=== PATIENT | female | born 1955 | race African-American/Black ===

== ENCOUNTER → 2017-01-16 | Outpatient (CLI) | payer MEDICARE, MEDICAID ==
[~2017-01-16] VITALS: Ht 157.5 cm; Wt 69.4 kg
[~2017-01-16] MED LIST: AMLO5TAB4 PO; ATOR40TA70 PO; DICY20TA11 PO; FENTANYL CITRATE/PF 50MCG/ML 2ML VIAL IV ONE; FENTANYL CITRATE/PF 50MCG/ML 2ML VIAL ONE; HYDR-523 PO; METF500T4 PO; SPIRIVA INH; breo; breo ellipta
[2017-01-16 10:15] VITALS: BP 125/63
[2017-01-16 10:30] VITALS: BP 161/91
[2017-01-16 10:34] VITALS: BP 161/91
[2017-01-16 10:45] VITALS: BP 145/91
[2017-01-16 10:51] VITALS: BP 145/91
[2017-01-16 11:00] VITALS: BP 148/86
== END | disposition home or self-care (01) ==
LOC: RAD 08:19
PROVIDERS: ATTEND Internal Medicine Critical Care Medicine
DX: J84.10 Pulmonary fibrosis, unspecified (principal); J43.9 Emphysema, unspecified
CPT/HCPCS: 32405; 71010; 77012; 87070; 87075; 87102; 87116; 87205; 88305; 88312; J3010

== ENCOUNTER → 2018-01-10 | Outpatient (CLI) | payer MEDICARE, MEDICAID ==
[~2018-01-10] MED LIST changes: -FENTANYL CITRATE/PF 50MCG/ML 2ML VIAL IV ONE; -FENTANYL CITRATE/PF 50MCG/ML 2ML VIAL ONE; -METF500T4 PO; +METF500T6 PO
== END | disposition home or self-care (01) ==
LOC: RAD 11:53
PROVIDERS: ATTEND Internal Medicine Critical Care Medicine
DX: M47.896 Other spondylosis, lumbar region (principal); I70.0 Atherosclerosis of aorta
CPT/HCPCS: 72100

== ENCOUNTER → 2018-12-25 | Outpatient (CLI) | payer MEDICARE, MEDICAID ==
[~2018-12-25] MED LIST changes: +METF-414 PO; -METF500T6 PO
== END | disposition home or self-care (01) ==
LOC: RAD 11:03
PROVIDERS: ATTEND Internal Medicine Critical Care Medicine
DX: M25.551 Pain in right hip (principal); M54.5 Low back pain
CPT/HCPCS: 73502

== ENCOUNTER 2020-11-16 18:27 | Inpatient (IN) | payer MEDICARE, MEDICAID ==
[~2020-11-16] VITALS: Ht 167.6 cm; Wt 68.0 kg
[2020-11-16 19:13] LABS: EOSINOPHILS % 2.1 % (0.0-5.0); HEMATOCRIT. 40.8 % (36.0-48.0); HEMOGLOBIN. 13.3 g/dL (12.0-16.0); LYMPHOCYTES % 20.6 % (20.0-50.0); MEAN CORPUSCULAR HEMOGLOBIN 25.3 pg (28.0-32.0); MEAN PLATELET VOLUME 7.8 fl (7.4-10.4); MONOCYTES % 7.8 % (2.0-8.0); NEUTROPHILS % 68.5 % (40.0-76.0); PLATELET 198 x1000/uL (130-400); RED BLOOD CELL COUNT 5.23 mill/uL (4.2-5.4)
[2020-11-16 19:18] LABS: CHLORIDE 106 mEq/L (98-107)
[2020-11-16] MEDS ORDERED: LEVOFLOXACIN 750MG PREMIX 150 ML IV ONE (21:00)
[2020-11-16] MEDS ORDERED: FUROSEMIDE 40MG/4ML VIAL IVP ONE (21:00)
[2020-11-16] MEDS ORDERED: HEPARIN 25,000 UNITS PREMIX 250 ML IV STA (23:00)
[2020-11-16] MEDS ORDERED: MORPHINE SULFATE 4 MG/ML CPJ (NOT FOR IM USE) IV ONE (23:15)
[2020-11-16] MEDS ORDERED: BENZONATATE 100MG CAPSULE PO PRN (23:15)
[2020-11-16] MEDS ORDERED: HEPARIN 25,000 UNITS PREMIX 250 ML IV SCH (23:45)
[2020-11-16] MEDS ORDERED: HEPARIN BOLUS PRN aPTT 37-44 IV (23:45)
[2020-11-16] MEDS ORDERED: HEPARIN BOLUS PRN aPTT <36 IV (23:45)
[2020-11-17] MEDS ORDERED: HEPARIN 80 UNITS/KG BOLUS IV NR
[2020-11-17] MEDS ORDERED: HEPARIN BOLUS PRN aPTT 37-44 IV (00:21)
[2020-11-17 01:00] VITALS: BP 141/84
[2020-11-17] MEDS ORDERED: APIX5TAB PO (02:12)
[2020-11-17] MEDS ORDERED: BENZ-16 PO (02:12)
[2020-11-17] MEDS ORDERED: TIOT18CA3 IH (02:12)
[2020-11-17] MEDS ORDERED: FLUT1BLS INH (02:12)
[2020-11-17] MEDS ORDERED: ATOR20TA65 PO (02:12)
[2020-11-17] MEDS ORDERED: MAGNESIUM/ALUMINUM HYDROXIDE/SIMETHICONE 30ML UDC PO PRN (03:00)
[2020-11-17] MEDS ORDERED: HYDROCODONE/ACETAMINOPHEN 5/325MG TABLET PO PRN (03:00)
[2020-11-17] MEDS ORDERED: ACETAMINOPHEN 325MG TABLET PO PRN (03:00)
[2020-11-17] MEDS ORDERED: GUAIFENESIN 200MG/10ML SUGAR FREE UDC PO PRN (03:00)
[2020-11-17] MEDS ORDERED: CLONIDINE 0.1MG TABLET PO PRN (03:00)
[2020-11-17] MEDS ORDERED: ONDANSETRON HCL 4MG/2ML INJ IV PRN (03:00)
[2020-11-17 04:00] VITALS: BP 144/85
[2020-11-17] MEDS ORDERED: DEXTROSE 50% WATER 50ML SYRINGE IV PRN (04:00)
[2020-11-17] MEDS: AZITHROMYCIN 500 MG in DEXT 5% WATER 250 ML IV SCH (04:23)
[2020-11-17] MEDS: CEFTRIAXONE 1,000 MG in DEXTROSE 5% WATER 50 ML IV SCH (04:24)
[2020-11-17] MEDS: ENOXAPARIN 60MG/0.6ML SYR SUBCUT SCH ×2 (04:24→16:12)
[2020-11-17] MEDS: BLOOD SUGAR DIAGNOSTIC STRIP TEST SCH ×4 (06:03→20:42)
[2020-11-17 08:00] VITALS: BP 155/91
[2020-11-17] MEDS ORDERED: AMLODIPINE 10MG TABLET PO SCH (09:00)
[2020-11-17] MEDS: INSULIN LISPRO 100 UNITS/ML SUBCUT SCH ×4 (10:13→20:51)
[2020-11-17] MEDS: METHYLPREDNISOLONE SOD SUCC 40 MG/ML VIAL IV SCH ×2 (10:14→16:11)
[2020-11-17] MEDS: AMLODIPINE 5MG TABLET PO SCH ×2 (10:15→20:42)
[2020-11-17] MEDS: FUROSEMIDE 40MG/4ML VIAL IV SCH (10:16)
[2020-11-17 12:00] VITALS: BP 103/53
[2020-11-17] MEDS ORDERED: LOSA50TA41 MT (12:06)
[2020-11-17] MEDS: LOSARTAN POTASSIUM 50 MG TABLET PO SCH ×2 (13:00→16:13)
[2020-11-17] MEDS ORDERED: POTASSIUM CHLORIDE 20MEQ TABLET SR PO SCH (14:15)
[2020-11-17 16:00] VITALS: BP 147/72
[2020-11-17 20:00] VITALS: BP 137/88
[2020-11-17] MEDS: ATORVASTATIN CALCIUM 20MG TABLET PO SCH (20:42)
[2020-11-18] VITALS: BP 135/73
[2020-11-18] MEDS: METHYLPREDNISOLONE SOD SUCC 40 MG/ML VIAL IV SCH ×3 (00:43→17:19)
[2020-11-18 04:00] VITALS: BP 133/78
[2020-11-18] MEDS: AZITHROMYCIN 500 MG in DEXT 5% WATER 250 ML IV SCH (04:00)
[2020-11-18] MEDS: CEFTRIAXONE 1,000 MG in DEXTROSE 5% WATER 50 ML IV SCH (05:05)
[2020-11-18] MEDS: ENOXAPARIN 60MG/0.6ML SYR SUBCUT SCH ×2 (05:34→17:19)
[2020-11-18] MEDS: BLOOD SUGAR DIAGNOSTIC STRIP TEST SCH ×3 (05:37→20:58)
[2020-11-18 06:58] LABS: CHLORIDE 101 mEq/L (98-107)
[2020-11-18 06:59] LABS: BASOPHILS % 1.1 % (0.0-2.0); HEMATOCRIT. 39.3 % (36.0-48.0); HEMOGLOBIN. 12.9 g/dL (12.0-16.0); MEAN CORPUSCULAR HEMOGLOBIN 25.7 pg (28.0-32.0); MEAN CORPUSCULAR VOLUME 78.5 fL (81.0-99.0); MONOCYTES % 1.9 % (2.0-8.0); PLATELET 203 x1000/uL (130-400); RED CELL DISTRIBUTION WIDTH 16.1 % (11.6-14.6)
[2020-11-18 07:08] LABS: LDL CHOLESTEROL 73 mg/dL (5-100)
[2020-11-18 07:09] LABS: HDL CHOLESTEROL 54 mg/dL (40-59)
[2020-11-18 08:00] VITALS: BP 116/73
[2020-11-18] MEDS: LOSARTAN POTASSIUM 50 MG TABLET PO SCH ×2 (08:30→17:19)
[2020-11-18] MEDS: AMLODIPINE 5MG TABLET PO SCH ×2 (08:31→20:58)
[2020-11-18] MEDS: FUROSEMIDE 40MG/4ML VIAL IV SCH (08:31)
[2020-11-18] MEDS: INSULIN LISPRO 100 UNITS/ML SUBCUT SCH ×4 (08:41→20:58)
[2020-11-18] MEDS ORDERED: IPRATROPIUM/ALBUTEROL 0.5-3(2.5)MG/3ML NEB HHN PRN (10:30)
[2020-11-18 12:00] VITALS: BP 131/76
[2020-11-18 16:00] VITALS: BP 150/88
[2020-11-18 20:00] VITALS: BP 146/92
[2020-11-18] MEDS: ATORVASTATIN CALCIUM 20MG TABLET PO SCH (20:57)
[2020-11-18] MEDS: IPRATROPIUM/ALBUTEROL 0.5-3(2.5)MG/3ML NEB HHN SCH (21:05)
[2020-11-19] VITALS: BP 130/72
[2020-11-19] MEDS: METHYLPREDNISOLONE SOD SUCC 40 MG/ML VIAL IV SCH ×3 (00:28→17:09)
[2020-11-19] MEDS: BUDESONIDE 0.5MG/2ML NEB HHN SCH ×2 (02:33→08:14)
[2020-11-19] MEDS: IPRATROPIUM/ALBUTEROL 0.5-3(2.5)MG/3ML NEB HHN SCH ×4 (02:33→20:28)
[2020-11-19 04:00] VITALS: BP 126/72
[2020-11-19] MEDS: AZITHROMYCIN 500 MG in DEXT 5% WATER 250 ML IV SCH (05:51)
[2020-11-19] MEDS: ENOXAPARIN 60MG/0.6ML SYR SUBCUT SCH ×2 (05:52→17:10)
[2020-11-19] MEDS: BLOOD SUGAR DIAGNOSTIC STRIP TEST SCH ×4 (06:07→20:52)
[2020-11-19 06:10] LABS: HEMATOCRIT. 39.6 % (36.0-48.0); HEMOGLOBIN. 12.8 g/dL (12.0-16.0); MEAN CORPUSCULAR HEMOGLOBIN 25.5 pg (28.0-32.0); MEAN PLATELET VOLUME 8.4 fl (7.4-10.4); PLATELET 218 x1000/uL (130-400); RED BLOOD CELL COUNT 5.01 mill/uL (4.2-5.4); RED CELL DISTRIBUTION WIDTH 16.1 % (11.6-14.6)
[2020-11-19 06:15] LABS: CHLORIDE 98 mEq/L (98-107)
[2020-11-19] MEDS: INSULIN LISPRO 100 UNITS/ML SUBCUT SCH ×4 (06:33→20:53)
[2020-11-19] MEDS: CEFTRIAXONE 1,000 MG in DEXTROSE 5% WATER 50 ML IV SCH (06:48)
[2020-11-19 08:00] VITALS: BP 122/71
[2020-11-19] MEDS: AMLODIPINE 5MG TABLET PO SCH ×2 (08:38→20:52)
[2020-11-19] MEDS: LOSARTAN POTASSIUM 50 MG TABLET PO SCH ×2 (08:38→17:09)
[2020-11-19] MEDS: FUROSEMIDE 40MG/4ML VIAL IV SCH ×2 (08:38→17:09)
[2020-11-19] MEDS: POTASSIUM CHLORIDE 10MEQ TABLET SR PO SCH (08:38)
[2020-11-19 11:48] VITALS: BP 134/87
[2020-11-19 16:00] VITALS: BP 133/78
[2020-11-19 20:00] VITALS: BP 151/75
[2020-11-19] MEDS: ATORVASTATIN CALCIUM 20MG TABLET PO SCH (20:52)
[2020-11-19 21:46] LABS: PLATELET ESTIMATE NORMAL
[2020-11-20] MEDS: DOCUSATE SODIUM 100MG CAPSULE PO PRN ×2 (00:18→20:57)
[2020-11-20] MEDS: METHYLPREDNISOLONE SOD SUCC 40 MG/ML VIAL IV SCH ×3 (00:18→17:29)
[2020-11-20 00:56] VITALS: BP 133/75
[2020-11-20] MEDS: IPRATROPIUM/ALBUTEROL 0.5-3(2.5)MG/3ML NEB HHN SCH ×4 (01:55→20:26)
[2020-11-20] MEDS: BUDESONIDE 0.5MG/2ML NEB HHN SCH ×2 (01:55→20:26)
[2020-11-20 04:00] VITALS: BP 131/74
[2020-11-20] MEDS: CEFTRIAXONE 1,000 MG in DEXTROSE 5% WATER 50 ML IV SCH (05:07)
[2020-11-20] MEDS: ENOXAPARIN 60MG/0.6ML SYR SUBCUT SCH ×2 (05:07→17:29)
[2020-11-20] MEDS: INSULIN LISPRO 100 UNITS/ML SUBCUT SCH ×4 (06:24→21:00)
[2020-11-20] MEDS: BLOOD SUGAR DIAGNOSTIC STRIP TEST SCH ×4 (06:24→20:53)
[2020-11-20 06:42] LABS: HEMATOCRIT. 37.3 % (36.0-48.0); HEMOGLOBIN. 12.1 g/dL (12.0-16.0); MEAN CORPUSCULAR HEMOGLOBIN 25.5 pg (28.0-32.0); MEAN CORPUSCULAR VOLUME 78.3 fL (81.0-99.0); MEAN PLATELET VOLUME 8.4 fl (7.4-10.4); PLATELET 193 x1000/uL (130-400); RED BLOOD CELL COUNT 4.76 mill/uL (4.2-5.4)
[2020-11-20 07:31] LABS: CHLORIDE 99 mEq/L (98-107)
[2020-11-20 08:00] VITALS: BP 135/75
[2020-11-20] MEDS: FUROSEMIDE 40MG/4ML VIAL IV SCH ×2 (08:33→17:28)
[2020-11-20] MEDS: AMLODIPINE 5MG TABLET PO SCH ×2 (08:33→20:53)
[2020-11-20] MEDS: AZITHROMYCIN 500 MG TABLET PO SCH (08:33)
[2020-11-20] MEDS: LOSARTAN POTASSIUM 50 MG TABLET PO SCH ×2 (08:34→17:28)
[2020-11-20] MEDS: POTASSIUM CHLORIDE 10MEQ TABLET SR PO SCH (08:34)
[2020-11-20 11:43] VITALS: BP 117/71
[2020-11-20 14:29] LABS: PLATELET ESTIMATE NORMAL
[2020-11-20 16:00] VITALS: BP 111/75
[2020-11-20 20:39] VITALS: BP 170/71
[2020-11-20] MEDS: ATORVASTATIN CALCIUM 20MG TABLET PO SCH (20:53)
[2020-11-21] VITALS: BP 125/72
[2020-11-21] MEDS: METHYLPREDNISOLONE SOD SUCC 40 MG/ML VIAL IV SCH ×2 (00:35→08:32)
[2020-11-21] MEDS: IPRATROPIUM/ALBUTEROL 0.5-3(2.5)MG/3ML NEB HHN SCH ×3 (02:37→12:49)
[2020-11-21 04:00] VITALS: BP 133/75
[2020-11-21] MEDS: ENOXAPARIN 60MG/0.6ML SYR SUBCUT SCH (05:01)
[2020-11-21] MEDS: CEFTRIAXONE 1,000 MG in DEXTROSE 5% WATER 50 ML IV SCH (05:01)
[2020-11-21] MEDS: BLOOD SUGAR DIAGNOSTIC STRIP TEST SCH ×3 (06:08→17:06)
[2020-11-21] MEDS: INSULIN LISPRO 100 UNITS/ML SUBCUT SCH ×3 (06:09→17:23)
[2020-11-21 07:11] LABS: HEMATOCRIT. 39.1 % (36.0-48.0); HEMOGLOBIN. 12.6 g/dL (12.0-16.0); MEAN CORPUSCULAR HEMOGLOBIN 24.7 pg (28.0-32.0); MEAN CORPUSCULAR VOLUME 76.7 fL (81.0-99.0); PLATELET 189 x1000/uL (130-400); RED CELL DISTRIBUTION WIDTH 16.5 % (11.6-14.6)
[2020-11-21 07:26] LABS: CHLORIDE 99 mEq/L (98-107)
[2020-11-21 08:00] VITALS: BP 137/76
[2020-11-21] MEDS: AMLODIPINE 5MG TABLET PO SCH (08:32)
[2020-11-21] MEDS: FUROSEMIDE 40MG/4ML VIAL IV SCH (08:32)
[2020-11-21] MEDS: LOSARTAN POTASSIUM 50 MG TABLET PO SCH ×2 (08:33→17:22)
[2020-11-21] MEDS: POTASSIUM CHLORIDE 10MEQ TABLET SR PO SCH (08:33)
[2020-11-21] MEDS: AZITHROMYCIN 500 MG TABLET PO SCH (08:33)
[2020-11-21] MEDS: BUDESONIDE 0.5MG/2ML NEB HHN SCH (08:55)
[2020-11-21 12:00] VITALS: BP 132/80
[2020-11-21 14:26] VITALS: BP 132/80
[2020-11-21 14:30] LABS: PLATELET ESTIMATE NORMAL
[2020-11-21 16:00] VITALS: BP 130/70
[2020-11-21] MEDS ORDERED: ENOXAPARIN 80MG/0.8ML SYR SUBCUT SCH (18:00)
[2020-11-22] MEDS ORDERED: METHYLPREDNISOLONE SOD SUCC 40 MG/ML VIAL IV SCH (09:00)
== END 2020-11-21 18:15 | disposition home health service (06) | DRG 175 ==
LOC: ER 18:27 → 7WST 21:23 → ENRESERV 23:05 → 5WST 11-18 12:08
PROVIDERS: ADMIT Hospitalist; ATTEND Hospitalist
DX: I26.99 Other pulmonary embolism without acute cor pulmonale (principal); J96.21 Acute and chronic respiratory failure with hypoxia; J18.9 Pneumonia, unspecified organism; I50.20 Unspecified systolic (congestive) heart failure; K86.1 Other chronic pancreatitis; E87.2 Acidosis; E78.5 Hyperlipidemia, unspecified; E11.9 Type 2 diabetes mellitus without complications; E87.6 Hypokalemia; I11.0 Hypertensive heart disease with heart failure; I07.1 Rheumatic tricuspid insufficiency; R91.1 Solitary pulmonary nodule; I25.10 Atherosclerotic heart disease of native coronary artery without angina pectoris; I27.20 Pulmonary hypertension, unspecified; M19.90 Unspecified osteoarthritis, unspecified site; N28.1 Cyst of kidney, acquired; Z20.822 Contact with and (suspected) exposure to COVID-19; J43.9 Emphysema, unspecified; Z79.01 Long term (current) use of anticoagulants; Z79.4 Long term (current) use of insulin; Z79.899 Other long term (current) drug therapy; Z87.891 Personal history of nicotine dependence; Z90.710 Acquired absence of both cervix and uterus; Z99.81 Dependence on supplemental oxygen; Z88.2 Allergy status to sulfonamides; Z79.1 Long term (current) use of non-steroidal anti-inflammatories (NSAID)
CPT/HCPCS: 36415; 71045; 71275; 80048; 80053; 80061; 82962; 83880; 84484; 85025; 93005; 93306; 93970; 94640; 97162; 99291; J0456; J0696; J1644; J1650; J1815; J1940; J1956; J2270; J2405; J2920; J7040; J7060; J7626; Q9967; U0003